=== PATIENT | female | born 1985 | race Caucasian/White ===

== ENCOUNTER 2018-09-10 20:16 | Emergency (ER) | payer SELFPAY ==
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
== END 2018-09-10 20:53 | disposition home health service (06) ==
LOC: UCCORT 20:16
DX: S91.302A Unspecified open wound, left foot, initial encounter (principal); S91.115A Laceration without foreign body of left lesser toe(s) without damage to nail, initial encounter; R50.9 Fever, unspecified; F17.290 Nicotine dependence, other tobacco product, uncomplicated; V86.99XA Unspecified occupant of other special all-terrain or other off-road motor vehicle injured in nontraffic accident, initial encounter; Y92.9 Unspecified place or not applicable
CPT/HCPCS: 99202; G0463